=== PATIENT | female | born 1995 | race Caucasian/White ===

== ENCOUNTER 2017-05-14 10:33 | Emergency (ER) | payer SELFPAY ==
--- NOTE | 2017-05-14 11:21 | ED Physician Chart ---
ED Chief Complaint/HPI - Patient Information Date Seen:: 05/14/17 Time Seen:: 11:15 Chief Complaint:: right elbow pain History of Present Illness:: Patient fell off her skateboard yesterday breaking her fall with the palms of both hands. Patient is right-hand dominant. Allergies:: Allergies Allergy/AdvReac Type Severity Reaction Status Date / Time No Known Allergies Allergy Verified 05/14/17 11:00 Vitals:: Vital Signs - 8 hr 05/14/17 10:55 Temp 98.1 F HR 102 RR 16 BP 133/79 O2 Sat % 99 Historian:: Patient Review:: Nurse's Note Reviewed ED Review of Systems - Review of Systems General/Constitutional: No fever, No chills Skin: Skin lesions Head: No headache Eyes: No loss of vision ENT: No earache Neck: No neck pain Cardio Vascular: No chest pain, No palpitations Pulmonary: No SOB GI: No nausea, No vomiting, No diarrhea G/U: No dysuria Musculoskeletal: Bone or joint pain Endocrine: No polyuria, No polydipsia Psychiatric: No prior psych history Hematopoietic: No bruising, No lymphadenopathy Allergic/Immuno: No urticaria Neurological: No syncope, No focal symptoms, No weakness ED Past Medical History - Past Medical History Past Medical History: No significant medical hx Family History: None Social History: Smoker, No Alcohol Surgical History: None Psychiatricy History: None Medication: None Family Medical History - Family Member Mother History Unknown: Yes ED Physical Exam - Physical Examination General/Constitutional: Well-developed, well-nourished, Alert, No distress Head: Atraumatic Eyes: Lids, conjuctiva normal, PERRL Other Skin comments:: few abrasions palms ENMT: External ears, nose nl, TM canals nl, Nasal exam nl, Lips, teeth, gums nl , Oropharynx nl, Tonsils nl Neck: No nuchal rigidity Respiratory: Nl effort/Exclusion, Clear to Auscultation Cardio Vascular: RRR, No murmur, gallop, rubs, NL S1 S2 GI: No tenderness/rebounding/guarding, No organomegaly, No hernia, Normal BS's, Nondistended Other Extremities comments:: Right elbow: There is tenderness over the radial head and of the posterior aspect Neuro/Psych: No focal deficits Misc: Normal back ED Labs/Radiology/EKG Results - Radiology Results Results: Right elbow x-ray showed nondisplaced fracture the radial head ED Septic Shock - . Is Septic Shock (SBP<90, OR Lactate>4 mmol\L) present?: No - <6hrs of presentation: Vital Signs: Vital Signs - 8 hr 05/14/17 10:55 Temp 98.1 F HR 102 RR 16 BP 133/79 O2 Sat % 99 ED Reassessment (Disposition) - Reassessment Reassessment:: Right arm placed in a sling Reassessment Condition:: Unchanged - Diagnosis Diagnosis:: Radial head fracture right elbow - Aftercare/Follow up Instructions Aftercare/Follow-Up Instructions:: Refer to Discharge Instructions - Patient Disposition Discharge/Transfer:: Home Condition at Disposition:: Stable, Unchanged ED Discharge Plan - Patient Disposition Instructions: Arm Sling Use, [id number], Elbow Fracture, Radial Head with Rehab-SportsMed Additional Instructions: As tolerated.
--- NOTE | 2017-05-14 12:33 | Diagnostic Imaging Report ---
Exam: Right elbow joint. HISTORY: Trauma Findings: Multiple views of the right elbow joint reviewed. The study demonstrates minimally displaced fracture of the right radial head. Superimposed anterior and posterior elevation of the fat pads appreciated indicate right elbow joint effusion. The visualized the right ulna is intact. IMPRESSION: slightly displaced fracture of the right radial head. Right elbow joint effusion.
== END 2017-05-14 12:30 | disposition home or self-care (01) ==
LOC: ER 10:33
DX: S52.121A Displaced fracture of head of right radius, initial encounter for closed fracture (principal); F17.200 Nicotine dependence, unspecified, uncomplicated; W19.XXXA Unspecified fall, initial encounter; Y93.89 Activity, other specified; Y92.89 Other specified places as the place of occurrence of the external cause; Y99.8 Other external cause status
CPT/HCPCS: 73070-TC-RT; 81025-TC